=== PATIENT | male | born 1990 | race Caucasian/White ===

== ENCOUNTER 2016-11-15 17:53 | Emergency (ER) | payer SELFPAY ==
[~2016-11-15] VITALS: Ht 175.3 cm; Wt 80.0 kg
[2016-11-15] MEDS ORDERED: SODIUM CHLORIDE 0.9% 1,000 ML IV ONE (18:22)
[2016-11-15 18:45] VITALS: BP 118/70
== END 2016-11-15 19:28 | disposition left against medical advice (07) ==
LOC: ER 18:29
DX: T18.8XXA Foreign body in other parts of alimentary tract, initial encounter (principal); F17.200 Nicotine dependence, unspecified, uncomplicated; F11.10 Opioid abuse, uncomplicated; Y93.89 Activity, other specified; Y99.8 Other external cause status; Y92.89 Other specified places as the place of occurrence of the external cause
CPT/HCPCS: 71010; 93005; 99284; J7030